=== PATIENT | male | born 1955 | race Hispanic/Latino ===

== ENCOUNTER 2021-01-21 07:56 | Day surgery (SDC) | payer MEDICARE ==
[2021-01-21] VITALS (8 sets, daily range): BP systolic 125–153; BP diastolic 70–91
[~2021-01-21] VITALS: Ht 170.2 cm; Wt 72.6 kg
[2021-01-21] MEDS ORDERED: OMEP40CA13 PO (09:19)
[2021-01-21] MEDS ORDERED: MELO-108 PO (09:19)
[2021-01-21] MEDS ORDERED: SODIUM CHLORIDE 0.9% 1000ML 1,000 ML IV ONE (09:22)
[2021-01-21] MEDS ORDERED: LIDOCAINE HCL 1% 20 ML VIAL ONE (10:25)
[2021-01-21] MEDS ORDERED: PROPOFOL 10 MG/ML 20ML VIAL IV ONE ×2 (10:25→10:34)
== END 2021-01-21 11:24 | disposition home or self-care (01) ==
LOC: ENDO 07:56 → DAH 07:56 → ENDO 11:24
PROVIDERS: ATTEND Internal Medicine Gastroenterology
DX: K85.90 Acute pancreatitis without necrosis or infection, unspecified (principal); K80.50 Calculus of bile duct without cholangitis or cholecystitis without obstruction; Z20.822 Contact with and (suspected) exposure to COVID-19; M19.90 Unspecified osteoarthritis, unspecified site; I10 Essential (primary) hypertension; K21.9 Gastro-esophageal reflux disease without esophagitis; Z87.891 Personal history of nicotine dependence; Z79.899 Other long term (current) drug therapy; Z98.890 Other specified postprocedural states
CPT/HCPCS: 43259; 43262; 43264; A4215 ×2; A4221; A4222; A4223; A4606; A4620; A4657; A4663; C9803; J2704 ×2; J7030; U0003

== ENCOUNTER 2021-01-22 10:02 | Day surgery (SDC) | payer MEDICARE ==
[~2021-01-22] VITALS: Ht 170.2 cm; Wt 72.6 kg
[2021-01-22] VITALS (19 sets, daily range): BP systolic 124–177; BP diastolic 7–102
[~2021-01-22 10:02] MED LIST: IOHEXOL-350 50ML VIAL IV ONE; MELO-108 PO; OMEP40CA13 PO
[2021-01-22] MEDS ORDERED: INDOMETHACIN 50 MG SUPP.RECT RC SCH (10:30)
[2021-01-22] MEDS ORDERED: SODIUM CHLORIDE 0.9% 1000ML 1,000 ML IV ONE (10:34)
[2021-01-22] MEDS ORDERED: SUCCINYLCHOLINE 200MG/10ML SYR ONE (10:51)
[2021-01-22] MEDS ORDERED: PROPOFOL 10 MG/ML 20ML VIAL IV ONE (10:51)
[2021-01-22] MEDS ORDERED: HYDRALAZINE HCL 20 MG/ML VIAL ONE (12:45)
== END 2021-01-22 14:15 | disposition home or self-care (01) ==
LOC: SUH 10:02
PROVIDERS: ATTEND Internal Medicine Gastroenterology
DX: K85.00 Idiopathic acute pancreatitis without necrosis or infection (principal); K80.50 Calculus of bile duct without cholangitis or cholecystitis without obstruction; M19.90 Unspecified osteoarthritis, unspecified site; K21.9 Gastro-esophageal reflux disease without esophagitis; Z79.899 Other long term (current) drug therapy; Z98.890 Other specified postprocedural states
CPT/HCPCS: 43262; 43264; 74328; A4215; A4221; A4222; A4223; A4606; A4663; C1769 ×2; C1773; J0330; J0360; J2704; J7030; Q9967; 74330